=== PATIENT | female | born 1985 | race Caucasian/White ===

== ENCOUNTER 2021-08-20 12:43 | Outpatient (REF) | payer OTHER, SELFPAY ==
[2021-08-20 14:10] LABS: COVID-19 Test Negative (Negative)
== END 2021-08-20 12:44 | disposition home or self-care (01) ==
LOC: HO.LAB 12:43
PROVIDERS: Visit Provider Internal Medicine
DX: Z20.822 Contact with and (suspected) exposure to COVID-19 (principal)
CPT/HCPCS: 36415; 87635; C9803

== ENCOUNTER 2022-07-15 15:41 | Outpatient (REF) | payer OTHER, SELFPAY ==
--- NOTE | ~2022-07-15 | XR_ITS ---
EXAMINATION: XR TIBIA AND FIBULA, RIGHT CLINICAL INFORMATION: Surgery at [facility] this past December. Status post fall. COMPARISON: None TECHNIQUE: AP and lateral views of the right tibia and fibula were obtained. FINDINGS: Postsurgical changes seen involving a comminuted right distal tibial and fibular fracture with sideplate and screw fixation. No definite hardware fracture or failure is identified. There are defects seen from previous screws within the proximal tibia. It would be difficult to tell if there was a definite new fracture due to fracture lines still being evident and regions of no bony union being seen with also what appears to be bone graft about the distal tibia. No dislocation is evident. No significant soft tissue swelling is appreciated other than for some mild soft tissue prominence with loss of fat planes about the anterior aspects junctions of the proximal and mid thirds and mid and distal thirds of the tibia. XR/XR tibia fibula RT 2V IMPRESSION: Postsurgical change from previous right fibular and tibial fractures with no definite evidence of hardware fracture. Some fracture lines and bone graft material are evident. No old films available for comparison to see if there may be acute changes.
== END 2022-07-15 15:42 | disposition home or self-care (01) ==
LOC: HO.HMGCX 15:41
PROVIDERS: PCP Internal Medicine; Visit Provider Emergency Medicine
DX: R52 Pain, unspecified (principal)
CPT/HCPCS: 73590

== ENCOUNTER 2022-12-24 17:14 | Outpatient (REF) | payer OTHER, SELFPAY ==
--- NOTE | ~2022-12-24 | MR_ITS ---
EXAMINATION: MR BRAIN WITHOUT AND WITH CONTRAST CLINICAL INFORMATION: Malignant neoplasm of the pituitary gland. COMPARISON: No relevant prior imaging. TECHNIQUE: Multiplanar MR imaging the brain was performed without and with contrast. A total of 4 mL Gadavist was utilized for this examination. FINDINGS: The sella turcica is asymmetric with chronic appearing remodeling of the right lateral aspect of the sellar floor. The pituitary tissue however enhances homogeneously. The pituitary stalk deviates to the left. No suprasellar mass effect or chiasmatic compression. Cavernous sinuses enhance symmetrically. No cavernous sinus invasion. Cavernous internal carotid artery flow voids are maintained. The overall height of the pituitary tissue is within limits of normal variation measuring approximately 0.5 cm. Postcontrast images of the whole brain reveal a tiny developmental venous anomaly traversing the right frontal lobe. Otherwise no abnormal mass or enhancement visualized elsewhere within the brain. There is a small nonspecific focus of T2 FLAIR signal hyperintensity involving the left caudate body. No evidence of acute territorial infarct. Intracranial vascular flow voids are maintained. There is a trace left mastoid tip effusion. Mild paranasal sinus disease primarily affecting the ethmoid air cells. Globes and orbits are symmetric. MR/MR head/brain wo/w con IMPRESSION: There is some anatomic asymmetry within the sella turcica as described above. Otherwise unremarkable examination in that there is no discrete evidence of a pituitary mass. Correlation with prior imaging is recommended if available. No suprasellar mass effect or chiasmatic compression. There is a small nonspecific focus of signal abnormality involving the left caudate body that may represent chronic small vessel ischemia. Chronic changes related to other ischemic, inflammatory, or demyelinating etiologies are not excluded. Otherwise no abnormal intracranial mass or enhancement visualized elsewhere within the [id number] of this examination.
== END 2022-12-24 17:15 | disposition home or self-care (01) ==
LOC: HO.MRI 17:14
PROVIDERS: PCP Internal Medicine; Visit Provider Internal Medicine
DX: D35.2 Benign neoplasm of pituitary gland (principal)
CPT/HCPCS: 70553; A9585

== ENCOUNTER 2024-05-15 08:31 | Outpatient (AMB) | payer OTHER, SELFPAY ==
[2024-05-15 08:35] VITALS: BP 118/86; PULSE 71; TEMP 36.9; O2SAT 98; BMI 22.9
--- NOTE | 2024-05-15 08:35 | AM.OFFWIN_ITS ---
Intake Vital Signs 05/15/24 08:35 Height 5 ft 7 in Weight 146 lb 8 oz BMI 22.9 BP 118/86 Blood Pressure Location Rt brachial Position Sitting Pulse 71 Pulse Source Pulse Oximeter Temp 98.5 F Temp Source Oral Pulse Oximetry (%) 98 Oxygen Delivery Method Room Air Intake Visit Reasons: ep RT eye sty Intake Note: Pt is here today for sty in Rt eye. Pt noticed eye 4 days ago Patient Tobacco Use Status: Current everyday Tobacco user Allergies loracarbef [From LORABID] Allergy (Severe, Verified 05/15/24 08:36) HIVES cephalasporins Allergy (Unknown, Uncoded 09/04/22 10:34) anaphylaxis Lorabid Allergy (Unknown, Uncoded 09/04/22 10:34) Hives Do you need a note to return to daycare/school/sports/work: No HPI HPI Comments History of Present Illness Details Patient is a 39-year-old female complaining of 4 days of a painful lump in her right upper eyelid. She states it feels like someone punched her in the eye. She denies any changes in her vision. She denies any weeping of anything except for clear fluid. She says it is a little crusted sometimes when she wakes up but it is not yellow crusting. 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 History of depression History of anxiety History of hepatitis C Family History Paternal Grandmother Breast cancer Bipolar 1 disorder Mother Brain aneurysm Maternal Grandmother Bipolar 1 disorder Other Mental health disorder Substance use disorder Social History Housing: Apartment Patient Tobacco Use Status: Current everyday Tobacco user Cigarettes Per Day: 2 Current occupational status: employed Cognitive needs: No Hearing needs: No Vision needs: Yes Review of Systems Const All systems reviewed & are unremarkable except as noted in HPI and below Physical Exam Vital Signs: Last Vital Signs Temp 98.5 F 05/15/24 08:35 Pulse 71 05/15/24 08:35 BP 118/86 05/15/24 08:35 Pulse Ox 98 05/15/24 08:35 Oxygen Delivery Method Room Air 05/15/24 08:35 BMI result Body Mass Index 22.9 Const General: cooperative, healthy appearing, comfortable, no acute distress and well developed Orientation/consciousness: patient oriented x3 Limitations: no limitations HEENT Head: Yes normal to inspection Eyes Visual Hannah: normal visual hannah by confrontation Alignment and Position: alignment normal Eyelids: Yes eyelid abnormality (Right upper eyelid erythema and swelling) Conjunctivae: conjunctivae normal Sclerae: sclerae normal Corneas: corneas normal Pupils: Equal, round and reactive pupils present EOM: EOMs intact bilaterally Neck Neck: Yes normal visual inspection and Yes full ROM Resp Effort & Inspection: normal respiratory effort and able to speak in complete sentences Skin General skin exam: no rashes or lesions noted Neuro General: patient oriented x3 Cranial nerves: Yes Equal, round and reactive pupils present Extrem General: Yes normal to inspection Assessment & Plan Assessment & Plan (1) Hordeolum externum of right upper eyelid: Code(s): H00.011 - Hordeolum externum right upper eyelid Plan: As it is painful and not just irritating, we will treat with erythromycin ointment. Advised patient to go to ER if any changes in her vision. Recommended following up with PCP if no resolution in symptoms Plan See above Medications: New erythromycin 0.5 inches ophthalmic (eye) QID 3.5 grams 0RF Coding Level of Care Code Est Pt Level 3 (24068) Diagnoses Hordeolum externum of right upper eyelid H00.011
== END 2024-05-15 09:19 | disposition home or self-care (01) ==
PROVIDERS: PCP Internal Medicine; Visit Provider Physician Assistant
DX: H00.011 Hordeolum externum right upper eyelid (principal)
CPT/HCPCS: 99213

== ENCOUNTER 2024-06-07 15:17 | Outpatient (AMB) | payer OTHER, SELFPAY ==
--- NOTE | 2024-06-07 15:22 | AM.OFFWIN_ITS ---
Intake Vital Signs 06/07/24 15:23 Height 5 ft 7 in Weight 145 lb BMI 22.7 BP 120/82 Blood Pressure Location Lt brachial Position Sitting Pulse 83 Pulse Source Pulse Oximeter Temp 98.9 F Temp Source Oral Pulse Oximetry (%) 96 Oxygen Delivery Method Room Air Intake Visit Reasons: Cut on thumb Left hand Intake Note: pt c/o cut on LT thumb. Rim of can late this morning. Needs TDAP Patient Tobacco Use Status: Current everyday Tobacco user Allergies loracarbef [From LORABID] Allergy (Severe, Verified 06/07/24 15:27) HIVES cephalasporins Allergy (Unknown, Uncoded 06/07/24 15:27) anaphylaxis Lorabid Allergy (Unknown, Uncoded 06/07/24 15:27) Hives Do you need a note to return to daycare/school/sports/work: No HPI HPI Comments History of Present Illness Details Patient is a 39-year-old female complaining of a cut on her left thumb she sustained while opening a can this morning, approx 5 hours ago. She states it has been bleeding profusely so she covered it and taped it to try to control the bleeding. 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 History of depression History of anxiety History of hepatitis C Family History Paternal Grandmother Breast cancer Bipolar 1 disorder Mother Brain aneurysm Maternal Grandmother Bipolar 1 disorder Other Mental health disorder Substance use disorder Social History Housing: Apartment Patient Tobacco Use Status: Current everyday Tobacco user Cigarettes Per Day: 2 Current occupational status: employed Cognitive needs: No Hearing needs: No Vision needs: Yes Review of Systems Const All systems reviewed & are unremarkable except as noted in HPI and below Physical Exam Vital Signs: Last Vital Signs Temp 98.9 F 06/07/24 15:23 Pulse 83 06/07/24 15:23 BP 120/82 06/07/24 15:23 Pulse Ox 96 06/07/24 15:23 Oxygen Delivery Method Room Air 06/07/24 15:23 BMI result Body Mass Index 22.7 Const General: cooperative, healthy appearing, comfortable, no acute distress and well developed Orientation/consciousness: patient oriented x3 Limitations: no limitations Neuro General: patient oriented x3 Extrem Left upper extremity: hand Details: tendon exam normal and laceration thumb palmar aspect central ; no unusual warmth, no swelling and no abrasions Office Procedures Laceration Repair Laceration repair performed by: Concepcion Kaur Explained risks and benefits to parent: Yes Informed consent given: Yes Consent signed: No Location: left thumb palmar aspect Length: 1.5cm Sedation: No Anesthesia: 1% lidocaine Irrigation: saline (and betadine) Preparation: betadine Deep closure: No Skin closure: nylon Technique: 4 sutures applied Topical treatment: dry Tetanus toxoid ordered: Yes Patient tolerated procedure: well Com[place]: [place] [id number] Repair <2.5cm Procedure code (CPT) selection complete Assessment & Plan Assessment & Plan (1) Laceration of thumb without complication: Code(s): S61.019A - Laceration without foreign body of unspecified thumb without damage to nail, initial encounter Qualifiers: Encounter type: initial encounter Laterality: left Qualified Code(s): S61.012A - Laceration without foreign body of left thumb without damage to nail, initial encounter Plan: Applied for sutures after numbing the thumb, applied nonadherent dressing. Re commended she keep it clean and dry and covered if she goes out for the next 48 hours. Once the wound starts healing, she can apply Aquaphor twice daily. Recommended she come back in 10 days, on June 18 to have the sutures removed. Plan See above Coding Level of Care Code Est Pt Level 3 (38345) Diagnoses Laceration of left thumb without complication, initial encounter S61.012A Encounter type: initial encounter Laterality: left
[2024-06-07 15:23] VITALS: BP 120/82; PULSE 83; TEMP 37.2; O2SAT 96; BMI 22.7
== END 2024-06-07 16:27 | disposition home or self-care (01) ==
PROVIDERS: PCP Internal Medicine; Visit Provider Physician Assistant
DX: Z23 Encounter for immunization (principal); S61.012A Laceration without foreign body of left thumb without damage to nail, initial encounter
CPT/HCPCS: 90471; 90715; 99213